=== PATIENT | female | born 1995 | race Caucasian/White ===

== ENCOUNTER 2016-08-04 22:28 | Emergency (ER) | payer MEDICAID ==
[~2016-08-04] VITALS: Ht 165.1 cm; Wt 63.6 kg
[~2016-08-04 22:28] MED LIST: 00186-0372-20 IH; ALKA-SELTZER HE1 TEF PO; CELEXA10 MG PO; LORTAB 5/500 501 TAB PO; MACROBID 1100 MG/CAP PO; ORTHO TRI-CYCLE1 TA2 PO; OXY IR5 MG PO; PRENATAL PO; TYLENOL SINUS1 EACH PO
[2016-08-04 22:32] VITALS: BP 107/61; TEMP 97.6
[2016-08-04 23:20] LABS: BASO # 0.1 (0.0-0.2); BASO % 0.6 % (0.0-2.0); EOS # 0.1 (0.0-0.7); EOS % 1.4 % (0-4.0); GRAN # 4.4 (1.4-6.5); GRAN % 56.7 % (42.2-75.2); LYMPH # 2.7 (1.2-3.4); LYMPH % 35.2 % (20.0-51.0); MEAN CELL VOLUME 90 fl (80.0-100.0); MEAN CORPUSCULAR HEMOGLOBIN 32 pg (27.0-31.0); MEAN CORPUSCULAR HGB CONC 35 g/dl (33.0-37.0); MEAN PLATELET VOLUME 9.2 fl (7.4-10.4); MONO # 0.5 (0.1-0.6); PLATELET COUNT 279 K/mm3 (130-400); RED BLOOD COUNT 3.77 M/mm3 (4.10-5.30); REDCELL DISTRIBUTION WIDTH-CV 11.7 % (11.5-14.5); WHITE BLOOD COUNT 7.7 K/mm3 (4.8-10.8)
[2016-08-04 23:21] LABS: HEMATOCRIT 33.9 % (37.0-47.0)
[2016-08-04 23:29] LABS: ADJUSTED CALCIUM 9.2 mg/dL (8.4-10.2); ALBUMIN 4.2 gm/dL (3.5-5.0); BILIRUBIN,TOTAL 0.7 mg/dL (0.0-1.0); CALCIUM 9.4 mg/dL (8.4-10.2); CREATININE, serum 0.57 mg/dL (0.52-1.25); MAGNESIUM 1.9 mg/dL (1.6-2.3); POTASSIUM 3.6 mmol/L (3.4-5.0); TOTAL PROTEIN 6.8 gm/dL (6.4-8.2)
[2016-08-04 23:33] LABS: PH 9 (5-8); URINE APPEARANCE Hazy; URINE BACTERIA None Seen /hpf; URINE BILIRUBIN Negative (NEGATIVE); URINE BLOOD 1+ (NEGATIVE); URINE COLOR Yellow; URINE GLUCOSE Negative (NEGATIVE); URINE KETONE Negative (NEGATIVE); URINE RBC >50 /hpf; URINE UROBILINOGEN Negative (NEGATIVE); URINE WBC 0-2 /hpf
[2016-08-04] MEDS ORDERED: PHENERGAN 25 TA25 MG PO (23:43)
[2016-08-05 00:15] VITALS: PULSE 90
== END 2016-08-05 00:17 | disposition home or self-care (01) ==
LOC: COL.ER 22:28
PROVIDERS: Emergency Medicine
DX: O21.9 Vomiting of pregnancy, unspecified (principal); O99.511 Diseases of the respiratory system complicating pregnancy, first trimester; O99.331 Smoking (tobacco) complicating pregnancy, first trimester; J45.909 Unspecified asthma, uncomplicated; Z3A.08 8 weeks gestation of pregnancy; Z98.890 Other specified postprocedural states
CPT/HCPCS: J2550; J7030

== ENCOUNTER 2016-08-13 21:09 | Observation (INO) | payer MEDICAID ==
[~2016-08-13] VITALS: Ht 165.1 cm; Wt 63.6 kg
[~2016-08-13 21:09] MED LIST changes: +PHENERGAN 25 TA25 MG PO
[2016-08-13 23:07] LABS: BASO % 0.4 % (0.0-2.0); EOS % 0.4 % (0-4.0); GRAN # 6.6 (1.4-6.5); GRAN % 62.4 % (42.2-75.2); HEMATOCRIT 31.5 % (37.0-47.0); LYMPH # 3.2 (1.2-3.4); LYMPH % 30.6 % (20.0-51.0); MEAN CELL VOLUME 91 fl (80.0-100.0); MEAN CORPUSCULAR HEMOGLOBIN 32 pg (27.0-31.0); MEAN CORPUSCULAR HGB CONC 35 g/dl (33.0-37.0); MEAN PLATELET VOLUME 9.5 fl (7.4-10.4); MONO # 0.6 (0.1-0.6); MONO % 5.8 % (1.7-9.3); PLATELET COUNT 323 K/mm3 (130-400); RED BLOOD COUNT 3.47 M/mm3 (4.10-5.30); REDCELL DISTRIBUTION WIDTH-CV 11.9 % (11.5-14.5); WHITE BLOOD COUNT 10.6 K/mm3 (4.8-10.8)
[2016-08-13 23:50] VITALS: BP 125/71; PULSE 109
[2016-08-14] VITALS (7 sets, daily range): BP systolic 102–127; BP diastolic 60–83; PULSE 96–109; TEMP 98.2
[2016-08-14] MEDS ORDERED: MOTRIN 800800 MG/TAB PO (00:35)
[2016-08-14] MEDS ORDERED: PERCOCET 325 MG1 TA2 PO (00:36)
== END 2016-08-14 03:36 | disposition home or self-care (01) ==
LOC: COL.ER 21:09 → OB 08-14 00:21
PROVIDERS: Emergency Medicine
DX: O03.4 Incomplete spontaneous abortion without complication (principal); N93.9 Abnormal uterine and vaginal bleeding, unspecified; D50.0 Iron deficiency anemia secondary to blood loss (chronic); O99.331 Smoking (tobacco) complicating pregnancy, first trimester; F17.210 Nicotine dependence, cigarettes, uncomplicated; O99.511 Diseases of the respiratory system complicating pregnancy, first trimester; J45.909 Unspecified asthma, uncomplicated; O99.42 Diseases of the circulatory system complicating childbirth; R00.0 Tachycardia, unspecified; Z80.0 Family history of malignant neoplasm of digestive organs; Z83.3 Family history of diabetes mellitus; Z82.49 Family history of ischemic heart disease and other diseases of the circulatory system; Z82.3 Family history of stroke; Z80.3 Family history of malignant neoplasm of breast; Z67.11 Type A blood, Rh negative; Z3A.09 9 weeks gestation of pregnancy
CPT/HCPCS: J1885; J2210; J2405; J2704; J2792; J3010; J7030; J7120